=== PATIENT | male | born 1950 | race Caucasian/White ===

== ENCOUNTER 2017-09-24 09:17 | Inpatient (IN) | payer OTHER ==
[2017-09-18 15:30] VITALS: BMI 24.8
[2017-09-24] MEDS ORDERED: oxyCODONE HCL 10 MG SUSTAINED ACTING TABLET PO ONE (10:36)
[2017-09-24] MEDS ORDERED: BUPIVACAINE HCL/PF 2.5 MG/ML - 30 ML VIAL IJ ONE (11:39)
[2017-09-24] MEDS ORDERED: LIDOCAINE 1%/EPI 1:100000 (20 ML MULTI DOSE VIAL) ONE (11:39)
[2017-09-24] MEDS ORDERED: THROMBIN (BOVINE) 5,000 UNIT VIAL TP ONE (11:39)
[2017-09-24] MEDS ORDERED: BUPIVACAINE LIPOSOME/PF (EXPAREL) 266 MG/20 ML VIAL ONE (11:41)
[2017-09-24] MEDS ORDERED: EPINEPHrine/PF 1 MG/1 ML (1:1,000) AMPULE ONE (13:10)
[2017-09-24] MEDS ORDERED: DEXAMETHASONE SOD PHOSPHATE/PF 10 MG/ML SDV ONE (13:10)
[2017-09-24] MEDS ORDERED: BUPIVACAINE HCL/PF (5 MG/ML) 30 ML VIAL IJ ONE (13:11)
[2017-09-24] MEDS ORDERED: MIDAZOLAM HCL 2 MG/2 ML SINGLE DOSE VIAL ONE ×3 (13:11→14:38)
--- NOTE | 2017-09-24 13:29 | HP ---
History & Physical Update - History History: No Change - Physical Physical: No Change - Assessment Assessment: No Change - Plan Plan: No Change (Fuul H&P in chart from 09/10/2017)
[2017-09-24] MEDS ORDERED: BUPIVACAINE HCL/PF 0.5% (5MG/ML) 10 ML VIAL ONE (13:40)
[2017-09-24] MEDS ORDERED: LIDOCAINE 1%/EPI 1:100000 (50 ML MULTI DOSE VIAL) INF ONE (14:35)
[2017-09-24] MEDS ORDERED: GUM MASTIC/STORAX/MSAL/ALCOHOL 1 DRP DROPSBTL MC ONE (17:02)
[2017-09-24] MEDS ORDERED: oxyCODONE HCL 5 MG TABLET PO PRN ×4 (17:31→17:40)
[2017-09-24] MEDS ORDERED: PROMETHAZINE HCL 25 MG/1 ML VIAL IVPUSH PRN (17:31)
[2017-09-24] MEDS ORDERED: ONDANSETRON 4 MG/2 ML VIAL IVPUSH PRN ×2 (17:31→17:40)
[2017-09-24] MEDS ORDERED: SODIUM CHLORIDE 1,000 ML IV SCH (17:45)
[2017-09-24] MEDS ORDERED: LACTATED RINGERS SOLUTION 1,000 ML IV SCH (17:45)
[2017-09-24] MEDS ORDERED: ONDANSETRON 4 MG/2 ML VIAL IVPUSH ONE (17:52)
--- NOTE | 2017-09-24 17:53 | OP ---
Operative Note - Note: Operative Date: 09/24/17 Pre-Operative Diagnosis: lumbar spondylolistehesis Operation: posterior lumbar decompression/fusion/instrumentation. Transforaminal lumbar interbody fusion of L4-L5 and L5-S1 with allograft and neuromonitoring Surgeon: Niko Lyman Motel Clerk: Mira Hines Anesthesiologist/PRODUCT DESIGN ENGINEER: Eliel Marshall Anesthesia: Spinal Estimated Blood Loss (mls): 60 Fluid Volume Replaced (mls): 500 Operative Report Dictated: Yes
--- NOTE | 2017-09-24 17:55 | SURG ---
Surgery Clock Maker Note Clock Maker: Mira Hines PA-C Date of Service: 09/24/17 Diagnosis: lumbar spondlyolisthesis Procedure: posterior lumbar debompression/fusion/instrumentation. transforaminal interbody fusion of L4-L5 and L5-S1 with allograft and neuromonitoring I was present for the entirety of the operative procedure. For further detail, please refer to operative report. Visit type - Case Type Case Type: Scheduled - Emergency Emergency Visit: No - New patient This patient is new to me today: Yes Date on this admission: 09/24/17
[2017-09-24] MEDS: diazePAM 2 MG TABLET PO SCH (19:23)
[2017-09-24] MEDS: traMADol HCL 50 MG TABLET PO SCH (21:24)
[2017-09-24] MEDS: ACETAMINOPHEN 325 MG TABLET (FP) PO SCH (21:24)
[2017-09-24] MEDS: CEFAZOLIN 1 GM/D5W 1 GM/50 ML BAG IVPB SCH (21:25)
--- NOTE | 2017-09-24 21:34 | OP ---
DATE OF OPERATION: 09/24/2017 PREOPERATIVE DIAGNOSIS: Spinal stenosis at L4-5, L5-S1. POSTOPERATIVE DIAGNOSIS: Spinal stenosis at L4-5, L5-S1. PROCEDURE PERFORMED: 1. Transforaminal lumbar interbody fusion at L4-5. 2. Transforaminal lumbar interbody fusion at L5-S1. 3. Placement of instrumentation at L4 to S1. 4. Revision laminectomy. 5. Placement of prosthetic cages at L4-5 and L5-S1. SURGEON: Niko Lyman MD WOOD HEEL CEMENTER: NICOLE Jeff ESTIMATED BLOOD LOSS: 100 mL INTRAVENOUS FLUIDS: Per Anesthesia. ANESTHESIA: Spinal/TLIP. COMPLICATIONS: None. DISPOSITION: Patient brought to the PACU in stable condition. INDICATION FOR SURGERY: The patient is a 66-year-old gentleman who has been suffering from pain and numbness and weakness from his back down his left leg. X-rays and MRI which showed that he had spinal stenosis at L4-5 and L5-S1. He had gone through an exhaustive course of treatment for this which included medications, physical therapy, as well as injections. Unfortunately, his numbness and weakness continued to persist. I had a long discussion with him regarding his MRI findings. I explained to him how he has nerve root compression at L4-5 and L5-S1 on the left-hand side and how that this can be contributing to his pain. We discussed different methods of managing this including injections versus surgery. We discussed different types of surgery including revision decompression versus fusion. Risks, benefits, and alternatives were discussed, and the patient elected to undergo fusion. DESCRIPTION OF PROCEDURE: Patient was brought to the operating room by the anesthesia staff. After appropriate patient identification was performed, spinal anesthesia was given. A TLIP block was also given. Patient was able to position himself prone onto the Octavio frame. All areas of bony prominences were well padded at this time. The C-arm was brought in. The L4, L5, and S1 pedicles were marked off. Next, 10 mL of lidocaine with epinephrine were injected into his back at this time. His back was prepped and draped in a sterile manner. At this point, a timeout was completed and an incision made from the top of L4 down to the bottom of S1. Dissection was carried down to the fascia. The fascia was then split open at this time, and appropriate retractors were then placed in. The C- arm was brought in, and under C-arm guidance, trocars were placed into the pedicles of S1, L5, and L4 bilaterally. Through the trocars, wires were inserted. Over the wires, tap was performed, and screws were inserted. On the left-hand side, retractor blades were set up to expose the L5-S1 facet joint. The facet joint was removed. The disk was entered. Using a series of pituitaries, Kerrisons, and curettes, a diskectomy was completed. Endplates were decorticated at this time. Bone graft was placed in. A cage filled with bone graft was placed in. Next, attention was turned to the L4-5 segment where retractor blades were set up to expose the facet joint. The facet joint was removed. The disk was entered. Using a series of pituitaries, Kerrisons, and curettes, diskectomy was completed. The endplates were decorticated at this time. Bone graft was laid down. A cage filled with bone graft was placed in. Tulip pads were placed over the screws. A tho was measured and placed in. Caps were placed on, and final tightening was performed. On the right-hand side, a tho was measured and placed in. Caps were placed on. Final tightening was performed. All extra instrumentation was removed at this time. AP and lateral x-rays confirmed the instrumentation to be in good position. The fascia was closed with a number 1 Vicryl suture. The subcutaneous tissue was closed with 2-0 Vicryl suture. Skin was closed with 3-0 Monocryl suture. Dermabond was applied. Steri-Strips were applied. A sterile dressing was applied. Patient was placed supine on the OR bed and brought to the PACU in stable condition. Shara [id number] MTDD
[2017-09-25] MEDS: CEFAZOLIN 1 GM/D5W 1 GM/50 ML BAG IVPB SCH (01:20)
[2017-09-25] MEDS: traMADol HCL 50 MG TABLET PO SCH ×2 (03:46→09:16)
[2017-09-25] MEDS: ACETAMINOPHEN 325 MG TABLET (FP) PO SCH ×2 (03:47→09:15)
[2017-09-25 08:10] LABS: HEMATOCRIT 45.5 % (35.4-49); HEMOGLOBIN 15.3 GM/dl (11.7-16.9); MCH 30.4 pg (25.7-33.7); MCHC 33.6 g/dl (32.0-35.9); MEAN CELL VOLUME 90.3 fl (80-96); MEAN PLT VOLUME 8.3 fl (7.5-11.1); PLATELET COUNT 336 K/MM3 (134-434); RBC 5.04 M/mm3 (4.00-5.60); RDW 12.3 % (11.9-15.9); WHITE BLOOD COUNT 22.1 K/mm3 (4.0-10.8)
[2017-09-25] MEDS: diazePAM 2 MG TABLET PO SCH (08:22)
--- NOTE | 2017-09-25 09:22 | DS ---
Physical Exam: SUBJECTIVE: Patient seen and examined, he is oob to the chair. Voiding without difficulty. Was oob and ambulated with assistance. He is having similar numbness to his LLE as before the surgery, slight improvement in the lateral aspect. His pain improved over the night. No headaches. OBJECTIVE: Vital Signs Temperature 97.7 F 09/25/17 06:00 Pulse Rate 88 09/25/17 06:00 Respiratory Rate 19 09/25/17 06:00 Blood Pressure 138/87 09/25/17 06:00 O2 Sat by Pulse Oximetry (%) 96 09/25/17 06:28 PHYSICAL EXAM GENERAL: The patient is awake, alert, and fully oriented, in no acute distress. LUNGS: Breath sounds equal, clear to auscultation bilaterally. HEART: Regular rate and rhythm. ABDOMEN: Soft, nontender, nondistended. EXTREMITIES: LLE with decreased swelling Back: dressing changed, steri-strips intact. Inc c/d/i. No masses/erythema noted. NEUROLOGICAL: Normal speech, gait not observed. 5/5 dorsi/plantar/EHL on the right. Left 4/5 plantar flexion, 2/5 dorsi flexion/EHL. LABS CBC,CMP WBC 22.1 K/mm3 (4.0-10.8) H 09/25/17 07:30 RBC 5.04 M/mm3 (4.00-5.60) 09/25/17 07:30 Hgb 15.3 GM/dl (11.7-16.9) 09/25/17 07:30 Hct 45.5 % (35.4-49) 09/25/17 07:30 MCV 90.3 fl (80-96) 09/25/17 07:30 MCH 30.4 pg (25.7-33.7) 09/25/17 07:30 MCHC 33.6 g/dl (32.0-35.9) 09/25/17 07:30 RDW 12.3 % (11.9-15.9) 09/25/17 07:30 Plt Count 336 K/MM3 (134-434) 09/25/17 07:30 MPV 8.3 fl (7.5-11.1) 09/25/17 07:30 HOSPITAL COURSE: Date of Admission:09/24/17 Date of Discharge: 09/25/17 The patient was admitted to the Med-Surg Unit after an elective repair of their spinal spondylolisthesis. Now, s/p L4-L5, L5-S1 TLIF. The day of surgery, the patient ambulated the hallways with assistance. Narcotic and non-narcotic pain management control was achieved with an oral and IV approach. An xray was obtained and confirmed hardware placement at L4-L5/L5- S1, no fractures or dislocations. Maryann-operative IV ABX were administered. DVT prophylaxis was achieved with SCDs and early ambulation. The patient ambulated with Physical Therapy and no services were recommended upon discharge. Narcotic scripts and or muscle relaxants were checked with [place] [employer] prior to escibe. The discharge instructions and an oral pain management plan were reviewed with the patient. All questions answered. Above plan discussed with Dr. Lyman and agreed. Minutes to complete discharge: 30
[2017-09-25 09:31] LABS: ANION GAP 10 (8-16); BLOOD UREA NITROGEN 14 mg/dl (7-18); CALCIUM 9.4 mg/dl (8.4-10.2); CHLORIDE 103 mmol/L (98-107); CO2 24 mmol/L (22-28); CREATININE 0.7 mg/dl (0.6-1.3); GLUCOSE,RANDOM 139 mg/dl (74-106); SODIUM 137 mmol/L (136-145)
[2017-09-25] MEDS ORDERED: LISINOPRIL 10 MG TABLET (FP) PO SCH (10:00)
[2017-09-25 13:07] LABS: HEMATOCRIT 44.6 % (35.4-49); HEMOGLOBIN 14.9 GM/dl (11.7-16.9); MCH 30.3 pg (25.7-33.7); MCHC 33.5 g/dl (32.0-35.9); MEAN CELL VOLUME 90.3 fl (80-96); MEAN PLT VOLUME 8.6 fl (7.5-11.1); PLATELET COUNT 374 K/MM3 (134-434); RBC 4.93 M/mm3 (4.00-5.60); RDW 12.5 % (11.9-15.9); WHITE BLOOD COUNT 19.5 K/mm3 (4.0-10.8)
[2017-09-25 14:09] VITALS: BP 118/68; PULSE 98; TEMP 99
[2017-09-25 14:27] LABS: PLATELET ESTIMATE ADEQUATE
== END 2017-09-25 14:55 | disposition home or self-care (01) | DRG 460 ==
LOC: FM/S 11:09
PROVIDERS: ADMIT Orthopaedic Surgery Orthopaedic Surgery of the Spine; ATTEND Orthopaedic Surgery Orthopaedic Surgery of the Spine
PROC: 0SG30AJ Fusion of Lumbosacral Joint with Interbody Fusion Device, Posterior Approach, Anterior Column, Open Approach (ICD-10-PCS; 2017-09-24)
PROC: 0SG00AJ Fusion of Lumbar Vertebral Joint with Interbody Fusion Device, Posterior Approach, Anterior Column, Open Approach (ICD-10-PCS; 2017-09-24)
PROC: 0QB00ZZ Excision of Lumbar Vertebra, Open Approach (ICD-10-PCS; principal; 2017-09-24 14:36)
DX: M48.061 Spinal stenosis, lumbar region without neurogenic claudication (principal); M43.16 Spondylolisthesis, lumbar region; M48.07 Spinal stenosis, lumbosacral region
CPT/HCPCS: 36415; 72100-TC-FY; 80048; 85025; 85027; 87389; 94760; 97116-GP; 97162-GP